=== PATIENT | male | born 1925 | race Caucasian/White ===

== ENCOUNTER 2017-02-09 20:44 | Inpatient (IN) | payer OTHER ==
[~2017-02-09] VITALS: Ht 193 cm; Wt 95.3 kg
[2017-02-09 20:57] VITALS: BP_SYST 150
[2017-02-09 21:59] LABS: MEAN CORPUSCULAR HEMOGLOBIN 29 pg (27-31); MEAN CORPUSCULAR HGB CONC 33 % (32-36); MEAN CORPUSCULAR VOLUME 90 fL (79.0-98.0); PLATELET COUNT (AUTO) 280 K/uL (130-430); RED BLOOD CELL COUNT(AUTO) 2.44 MIL/uL (4.2-6.2); RED CELL DISTRIBUTION WIDTH 18.9 % (9.0-15.0); WHITE BLOOD COUNT (AUTO) 22.7 K/uL (4.8-10.8)
[2017-02-09 22:10] LABS: HEMOGLOBIN 7.2 g/dL (14.0-18.0)
[2017-02-09 22:17] LABS: INR 1.1 (0.80-1.20); PROTHROMBIN TIME 11.5 SECS (9.5-12.5)
[2017-02-09 22:19] LABS: ANION GAP 6 (5-15); CALCIUM 7.3 mg/dL (8.4-11.0); CHLORIDE 113 mmol/L (98-107); CREATININE 5.79 mg/dL (0.55-1.30); GLUCOSE 126 mg/dL (70-99); SODIUM SERUM 145 mmol/L (136-145)
[2017-02-09 22:23] LABS: POTASSIUM 6.3 mmol/L (3.5-5.1); UREA NITROGEN, BLOOD 118 mg/dL (8-21)
[2017-02-09 22:27] LABS: ATYPICAL LYMPHOCYTES % 0 % (0-0); BAND % (MANUAL) 0 % (0-6); LYMPHOCYTES % (MANUAL) 1 % (20-46); MONOCYTES % (MANUAL) 5 % (0-11)
[2017-02-09 22:28] LABS: BASOPHILS % (MANUAL) 0 % (0-2); EOSINOPHILS % (MANUAL) 0 % (0-7)
[2017-02-09 22:29] LABS: ALANINE AMINOTRANSFERASE 24 U/L (12-78); ASPARTATE AMINOTRANSFERASE 22 U/L (10-37); TOTAL BILIRUBIN 0.3 mg/dL (0.0-1.0)
[2017-02-09 22:30] LABS: ALBUMIN 1.7 g/dL (3.4-4.8)
[2017-02-09] MEDS ORDERED: ALBUTEROL SULFATE 0.083% 2.5 MG/3 ML VIAL.NEB INH ONE (22:30)
[2017-02-09] MEDS ORDERED: NACL 0.9% 1,000 ML IV ONE (22:30)
[2017-02-09] MEDS ORDERED: CALCIUM CHLORIDE 1 GM in NS 100 ML IV ONE (22:30)
[2017-02-09] MEDS ORDERED: SODIUM POLYSTYRENE SULFONATE 15 GM/60 ML UDBTL PO ONE (22:30)
[2017-02-09] MEDS ORDERED: INSULIN REGULAR, HUMAN 10 UNITS/0.1 ML INJ IVP ONE (22:30)
[2017-02-09] MEDS ORDERED: DEXTROSE 50% JECT 50 ML DISP.SYRIN IVP ONE (22:30)
[2017-02-09 23:01] LABS: BILIRUBIN,URINE NEGATIVE (NEGATIVE); BLOOD, URINE 1+ (NEGATIVE); CLARITY/URINE CLEAR (CLEAR); COLOR,URINE YELLOW (YELLOW); GLUCOSE,URINE NEGATIVE (NEGATIVE); KETONES,URINE NEGATIVE (NEGATIVE); LEUKOCYTE ESTERASE ,URINE 2+ (NEGATIVE); NITRITE, URINE NEGATIVE (NEGATIVE); PH,URINE 5.5 (5.0-8.0); PROTEIN URINE NEGATIVE (NEGATIVE); UROBILINOGEN,URINE 0.2 (0.2-1.0)
[2017-02-09 23:11] LABS: BACTERIA,URINE MODERATE /HPF (None Seen); WBC,URINE 20-50 /HPF (0-3); YEAST,URINE Moderate /HPF (None Seen)
[2017-02-09] MEDS ORDERED: INSULIN REGULAR, HUMAN 10 UNITS/0.1 ML INJ ONE (23:28)
[2017-02-10] MEDS ORDERED: LOSA100T11 GT (00:04)
[2017-02-10] MEDS ORDERED: HYDR-4100 GT (00:04)
[2017-02-10] MEDS ORDERED: OMEP20CA10 GT (00:04)
[2017-02-10] MEDS ORDERED: VITD2000 GT (00:04)
[2017-02-10] MEDS ORDERED: ACET-2165 GT (00:04)
[2017-02-10] MEDS ORDERED: FERR-57 GT (00:04)
[2017-02-10] MEDS ORDERED: FLO110 INH (00:04)
[2017-02-10] MEDS ORDERED: DOXA4TAB2 GT (00:04)
[2017-02-10] MEDS ORDERED: ASPI-1063 GT (00:04)
[2017-02-10] MEDS ORDERED: LIP20 GT (00:04)
[2017-02-10] MEDS ORDERED: METO25TA6 GT (00:04)
[2017-02-10] MEDS ORDERED: BUDE6.9H INH (00:04)
[2017-02-10] MEDS ORDERED: CALCIUM CHLORIDE 1 GM/10 ML DISP.SYRIN (14 mEq Ca++/SYR) ONE (00:44)
[2017-02-10] MEDS ORDERED: 0.45% NACL 1,000 ML IV SCH (01:00)
[2017-02-10 01:28] VITALS: BP_SYST 137
[2017-02-10] MEDS ORDERED: FLU VACC QS 2017-18(36MOS+)/PF 0.5 ML/SYR SYRINGE I.M. PRN (01:45)
[2017-02-10] MEDS ORDERED: VANCOMYCIN HCL 1 GM/NS PREMIX 250 ML IV ONE (02:00)
[2017-02-10] MEDS ORDERED: VANCOMYCIN HCL 1000 MG/VIAL IV ONE (02:39)
[2017-02-10 07:28] LABS: BASOPHILS % (AUTO) 0.1 % (0.0-2.0); EOSINOPHILS % (AUTO) 0.2 % (0.0-4.0); LYMPHOCYTES # (AUTO) 0.2 K/uL (1.0-5.5); MEAN CORPUSCULAR HEMOGLOBIN 29 pg (27-31); MEAN CORPUSCULAR HGB CONC 33 % (32-36); MEAN CORPUSCULAR VOLUME 90 fL (79.0-98.0); MONOCYTES # (AUTO) 1.1 K/uL (0.0-1.0); MONOCYTES % (AUTO) 5.6 % (1.7-9.3); NEUTROPHILS # (AUTO) 18.4 K/uL (1.8-7.7); NEUTROPHILS % (AUTO) 93.1 % (40.0-70.0); PLATELET COUNT (AUTO) 248 K/uL (130-430); RED BLOOD CELL COUNT(AUTO) 2.17 MIL/uL (4.2-6.2); RED CELL DISTRIBUTION WIDTH 18.8 % (9.0-15.0)
[2017-02-10 08:04] VITALS: BP_SYST 134
[2017-02-10 08:10] LABS: ANION GAP 9 (5-15); CALCIUM 7.3 mg/dL (8.4-11.0); CHLORIDE 116 mmol/L (98-107); CREATININE 5.08 mg/dL (0.55-1.30); GLUCOSE 95 mg/dL (70-99); POTASSIUM 5.1 mmol/L (3.5-5.1); SODIUM SERUM 150 mmol/L (136-145)
[2017-02-10 08:17] LABS: UREA NITROGEN, BLOOD 111 mg/dL (8-21)
[2017-02-10 08:19] LABS: HEMATOCRIT 19.6 % (36-54); HEMOGLOBIN 6.4 g/dL (14.0-18.0)
[2017-02-10 08:20] LABS: WHITE BLOOD COUNT (AUTO) 19.7 K/uL (4.8-10.8)
[2017-02-10] MEDS ORDERED: LORATADINE 10 MG TABLET PO ONE (10:00)
[2017-02-10] MEDS ORDERED: FUROSEMIDE 40 MG/4 ML VIAL IVP ONE (11:15)
[2017-02-10] MEDS ORDERED: PANTOPRAZOLE SODIUM 40 MG/VIAL (PROTONIX) IVP ONE (11:15)
[2017-02-10] MEDS: D5W 1,000 ML IV SCH ×2 (11:17→22:30)
[2017-02-10] MEDS: FLUCONAZOLE 100 mg/ NS 50 ML IV SCH (11:18)
[2017-02-10 11:27] LABS: INR 1.2 (0.80-1.20); PROTHROMBIN TIME 12.4 SECS (9.5-12.5)
[2017-02-10 11:32] VITALS: BP_SYST 142
[2017-02-10] MEDS ORDERED: SODIUM POLYSTYRENE SULFONATE 15 GM/60 ML UDBTL GT ONE (12:00)
[2017-02-10] MEDS: CEFEPIME 1 GM in D5W 50 ML IV SCH (13:54)
[2017-02-10 14:18] LABS: TOTAL IRON BIND. CAPACITY 94 ug/dL (250-450)
[2017-02-10 16:11] VITALS: BP_SYST 145
[2017-02-10] MEDS: metroNIDAZOLE 500 mg/NS 100 ML IV SCH ×2 (16:11→22:14)
[2017-02-10 20:00] VITALS: BP_SYST 150
[2017-02-10] MEDS ORDERED: VANCOMYCIN HCL 500 MG in NS 100 ML IV SCH (23:00)
[2017-02-10 23:54] VITALS: BP_SYST 150
[2017-02-11 03:48] VITALS: BP_SYST 141
[2017-02-11] MEDS: metroNIDAZOLE 500 mg/NS 100 ML IV SCH ×3 (06:12→22:38)
[2017-02-11] MEDS: D5W 1,000 ML IV SCH ×2 (06:12→13:04)
[2017-02-11 07:31] LABS: EOSINOPHILS # (AUTO) 0.4 K/uL (0.0-0.4); EOSINOPHILS % (AUTO) 2.4 % (0.0-4.0); HEMATOCRIT 24.9 % (36-54); HEMOGLOBIN 8.2 g/dL (14.0-18.0); LYMPHOCYTES # (AUTO) 0.3 K/uL (1.0-5.5); LYMPHOCYTES % (AUTO) 1.6 % (20.5-51.5); MEAN CORPUSCULAR HEMOGLOBIN 29 pg (27-31); MEAN CORPUSCULAR HGB CONC 33 % (32-36); MEAN CORPUSCULAR VOLUME 88 fL (79.0-98.0); MONOCYTES # (AUTO) 1.1 K/uL (0.0-1.0); MONOCYTES % (AUTO) 6.5 % (1.7-9.3); NEUTROPHILS # (AUTO) 15.4 K/uL (1.8-7.7); NEUTROPHILS % (AUTO) 89.5 % (40.0-70.0); PLATELET COUNT (AUTO) 253 K/uL (130-430); RED BLOOD CELL COUNT(AUTO) 2.83 MIL/uL (4.2-6.2); RED CELL DISTRIBUTION WIDTH 18.5 % (9.0-15.0); WHITE BLOOD COUNT (AUTO) 17.2 K/uL (4.8-10.8)
[2017-02-11 07:42] LABS: ANION GAP 9 (5-15); CALCIUM 7.4 mg/dL (8.4-11.0); CHLORIDE 114 mmol/L (98-107); CREATININE 3.77 mg/dL (0.55-1.30); GLUCOSE 94 mg/dL (70-99); POTASSIUM 3.2 mmol/L (3.5-5.1); SODIUM SERUM 150 mmol/L (136-145)
[2017-02-11 07:55] LABS: UREA NITROGEN, BLOOD 108 mg/dL (8-21)
[2017-02-11 08:06] LABS: TOTAL IRON BIND. CAPACITY 94 ug/dL (250-450)
[2017-02-11] MEDS: PANTOPRAZOLE SODIUM 40 MG/VIAL (PROTONIX) IVP SCH (09:04)
[2017-02-11] MEDS: FLUCONAZOLE 100 mg/ NS 50 ML IV SCH (09:05)
[2017-02-11 09:10] VITALS: BP_SYST 170
[2017-02-11] MEDS ORDERED: KCL 20 mEq in 100 mL (PREMIX) 100 ML IV ONE (09:30)
[2017-02-11] MEDS: METOPROLOL TARTRATE 5 MG/5 ML VIAL IVP PRN (10:12)
[2017-02-11 11:32] VITALS: BP_SYST 160
[2017-02-11] MEDS: ALBUMIN HUMAN 25% 50 ML IV SCH ×3 (12:02→18:27)
[2017-02-11 12:11] LABS: FOLATE (FOLIC ACID) 12.8 ng/mL (>3.0)
[2017-02-11] MEDS: CEFEPIME 1 GM in D5W 50 ML IV SCH (13:14)
[2017-02-11 15:25] VITALS: BP_SYST 159
[2017-02-11] MEDS ORDERED: BUDESONIDE/FORMOTEROL 80-4.5 mCg, 6.9 GM INHALER INH SCH (21:00)
[2017-02-11] MEDS: ATORVASTATIN 20 MG TABLET GT SCH (22:38)
[2017-02-11] MEDS: METOPROLOL TARTRATE 25 MG TABLET GT SCH (22:41)
[2017-02-11 23:45] VITALS: BP_SYST 179
[2017-02-12] MEDS: METOPROLOL TARTRATE 5 MG/5 ML VIAL IVP PRN ×2 (00:36→05:10)
[2017-02-12 00:52] LABS: RETICULOCYTE COUNT 2.2 % (0.5-1.5)
[2017-02-12 03:59] VITALS: BP_SYST 182
[2017-02-12] MEDS: metroNIDAZOLE 500 mg/NS 100 ML IV SCH ×3 (05:10→21:23)
[2017-02-12 07:10] LABS: ALANINE AMINOTRANSFERASE 29 U/L (12-78); ALBUMIN 1.9 g/dL (3.4-4.8); ANION GAP 5 (5-15); ASPARTATE AMINOTRANSFERASE 26 U/L (10-37); CALCIUM 7.1 mg/dL (8.4-11.0); CHLORIDE 118 mmol/L (98-107); CREATININE 2.69 mg/dL (0.55-1.30); GLUCOSE 127 mg/dL (70-99); PHOSPHORUS 3.9 mg/dL (2.7-4.5); POTASSIUM 3.7 mmol/L (3.5-5.1); SODIUM SERUM 152 mmol/L (136-145); TOTAL BILIRUBIN 0.4 mg/dL (0.0-1.0); UREA NITROGEN, BLOOD 86 mg/dL (8-21)
[2017-02-12 07:13] LABS: BASOPHILS % (AUTO) 0.1 % (0.0-2.0); EOSINOPHILS # (AUTO) 0.5 K/uL (0.0-0.4); EOSINOPHILS % (AUTO) 3.9 % (0.0-4.0); HEMATOCRIT 23.1 % (36-54); HEMOGLOBIN 7.5 g/dL (14.0-18.0); LYMPHOCYTES # (AUTO) 0.3 K/uL (1.0-5.5); LYMPHOCYTES % (AUTO) 2.2 % (20.5-51.5); MEAN CORPUSCULAR HEMOGLOBIN 29 pg (27-31); MEAN CORPUSCULAR HGB CONC 33 % (32-36); MEAN CORPUSCULAR VOLUME 89 fL (79.0-98.0); MONOCYTES % (AUTO) 7.3 % (1.7-9.3); NEUTROPHILS # (AUTO) 11.5 K/uL (1.8-7.7); PLATELET COUNT (AUTO) 287 K/uL (130-430); RED CELL DISTRIBUTION WIDTH 18.4 % (9.0-15.0); WHITE BLOOD COUNT (AUTO) 13.3 K/uL (4.8-10.8)
[2017-02-12 07:17] LABS: INR 1.3 (0.80-1.20); PROTHROMBIN TIME 12.9 SECS (9.5-12.5)
[2017-02-12 08:00] VITALS: BP_SYST 206
[2017-02-12] MEDS: DOXAZOSIN MESYLATE 2 MG TABLET GT SCH (08:38)
[2017-02-12] MEDS: PANTOPRAZOLE SODIUM 40 MG/VIAL (PROTONIX) IVP SCH (08:38)
[2017-02-12] MEDS: METOPROLOL TARTRATE 25 MG TABLET GT SCH ×2 (08:39→21:25)
[2017-02-12] MEDS: LOSARTAN POTASSIUM 50 MG TABLET (COZAAR) GT SCH (08:39)
[2017-02-12] MEDS: FLUTICASONE/VILANTEROL 1 EACH BLST.W.DEV INH SCH (08:51)
[2017-02-12] MEDS: D5W 1,000 ML IV SCH (08:52)
[2017-02-12 10:15] LABS: NEUTROPHILS % (AUTO) 86.5 % (40.0-70.0)
[2017-02-12] MEDS: FLUCONAZOLE 100 mg/ NS 50 ML IV SCH (10:44)
[2017-02-12 11:14] LABS: FOLATE (FOLIC ACID) 11.2 ng/mL (>3.0)
[2017-02-12 12:20] VITALS: BP_SYST 161
[2017-02-12] MEDS: CEFEPIME 1 GM in D5W 50 ML IV SCH (12:21)
[2017-02-12] MEDS: traMADol HCL HCL 50 MG TABLET (ULTRAM) PO SCH ×2 (12:21→17:41)
[2017-02-12] MEDS: hydrALAZINE HCL 25 MG TABLET PO SCH (13:51)
[2017-02-12] MEDS: 0.45% NACL 1,000 ML IV SCH (14:02)
[2017-02-12] MEDS: cloNIDine HCL 0.2 MG TABLET PO PRN (15:52)
[2017-02-12 16:33] VITALS: BP_SYST 141
[2017-02-12 20:10] VITALS: BP_SYST 145
[2017-02-12] MEDS: ATORVASTATIN 20 MG TABLET GT SCH (21:22)
[2017-02-13 00:53] VITALS: BP_SYST 156
[2017-02-13] MEDS: traMADol HCL HCL 50 MG TABLET (ULTRAM) PO SCH ×3 (01:10→12:18)
[2017-02-13 05:59] VITALS: BP_SYST 140
[2017-02-13] MEDS: 0.45% NACL 1,000 ML IV SCH ×2 (06:24→12:21)
[2017-02-13] MEDS: metroNIDAZOLE 500 mg/NS 100 ML IV SCH ×3 (06:27→22:00)
[2017-02-13 08:00] VITALS: BP_SYST 174
[2017-02-13 09:06] LABS: BASOPHILS % (AUTO) 0.2 % (0.0-2.0); EOSINOPHILS # (AUTO) 0.5 K/uL (0.0-0.4); EOSINOPHILS % (AUTO) 4.2 % (0.0-4.0); HEMOGLOBIN 7.1 g/dL (14.0-18.0); LYMPHOCYTES # (AUTO) 0.3 K/uL (1.0-5.5); LYMPHOCYTES % (AUTO) 2.8 % (20.5-51.5); MEAN CORPUSCULAR HEMOGLOBIN 30 pg (27-31); MEAN CORPUSCULAR HGB CONC 33 % (32-36); MEAN CORPUSCULAR VOLUME 89 fL (79.0-98.0); MONOCYTES # (AUTO) 0.9 K/uL (0.0-1.0); MONOCYTES % (AUTO) 7.9 % (1.7-9.3); NEUTROPHILS # (AUTO) 10.1 K/uL (1.8-7.7); NEUTROPHILS % (AUTO) 84.9 % (40.0-70.0); PLATELET COUNT (AUTO) 240 K/uL (130-430); RED CELL DISTRIBUTION WIDTH 18.1 % (9.0-15.0); WHITE BLOOD COUNT (AUTO) 11.8 K/uL (4.8-10.8)
[2017-02-13 09:13] LABS: HEMATOCRIT 21.5 % (36-54)
[2017-02-13 09:16] LABS: ANION GAP 2 (5-15); CHLORIDE 117 mmol/L (98-107); CREATININE 2.19 mg/dL (0.55-1.30); GLUCOSE 145 mg/dL (70-99); POTASSIUM 3.9 mmol/L (3.5-5.1); SODIUM SERUM 150 mmol/L (136-145); UREA NITROGEN, BLOOD 78 mg/dL (8-21)
[2017-02-13 09:27] LABS: CALCIUM 6.9 mg/dL (8.4-11.0)
[2017-02-13] MEDS: FLUCONAZOLE 100 mg/ NS 50 ML IV SCH (10:03)
[2017-02-13] MEDS: PANTOPRAZOLE SODIUM 40 MG/VIAL (PROTONIX) IVP SCH (10:03)
[2017-02-13] MEDS: DOXAZOSIN MESYLATE 2 MG TABLET GT SCH (10:04)
[2017-02-13] MEDS: METOPROLOL TARTRATE 25 MG TABLET GT SCH ×2 (10:05→21:00)
[2017-02-13] MEDS: LOSARTAN POTASSIUM 50 MG TABLET (COZAAR) GT SCH (10:05)
[2017-02-13] MEDS: FLUTICASONE/VILANTEROL 1 EACH BLST.W.DEV INH SCH (10:07)
[2017-02-13] MEDS ORDERED: CHOLECALCIFEROL (VITAMIN D3) 2,000 UNIT TABLET GT ONE (11:00)
[2017-02-13] MEDS ORDERED: FERROUS SULFATE 325 MG TABLET.DR GT ONE (11:00)
[2017-02-13] MEDS ORDERED: ASPIRIN 81 MG TABLET(ECOTRIN) GT ONE (11:00)
[2017-02-13] MEDS ORDERED: OMEPRAZOLE 20 MG CAPSULE.DR (PriLOSEC) GT ONE (11:00)
[2017-02-13] MEDS ORDERED: FUROSEMIDE 40 MG/4 ML VIAL IVP ONE (11:15)
[2017-02-13 11:29] VITALS: BP_SYST 168
[2017-02-13] MEDS: CEFEPIME 1 GM in D5W 50 ML IV SCH (12:12)
[2017-02-13] MEDS: hydrALAZINE HCL 25 MG TABLET PO SCH ×3 (14:00→22:00)
[2017-02-13 16:16] VITALS: BP_SYST 141
[2017-02-13] MEDS: ATORVASTATIN 20 MG TABLET GT SCH (21:08)
[2017-02-13] MEDS: CALCIUM 500 MG/TAB GT SCH (21:08)
[2017-02-13 23:10] VITALS: BP_SYST 138
[2017-02-14 00:10] VITALS: BP_SYST 133
[2017-02-14] MEDS: traMADol HCL HCL 50 MG TABLET (ULTRAM) PO SCH ×6 (01:30→23:14)
[2017-02-14 04:18] VITALS: BP_SYST 127
[2017-02-14] MEDS: metroNIDAZOLE 500 mg/NS 100 ML IV SCH ×3 (05:10→21:30)
[2017-02-14] MEDS: hydrALAZINE HCL 25 MG TABLET PO SCH ×4 (05:14→21:34)
[2017-02-14 06:45] LABS: BASOPHILS % (AUTO) 0.1 % (0.0-2.0); EOSINOPHILS # (AUTO) 0.3 K/uL (0.0-0.4); EOSINOPHILS % (AUTO) 3.3 % (0.0-4.0); LYMPHOCYTES # (AUTO) 0.3 K/uL (1.0-5.5); LYMPHOCYTES % (AUTO) 2.8 % (20.5-51.5); MEAN CORPUSCULAR HEMOGLOBIN 28 pg (27-31); MEAN CORPUSCULAR HGB CONC 31 % (32-36); MEAN CORPUSCULAR VOLUME 89 fL (79.0-98.0); MONOCYTES # (AUTO) 0.8 K/uL (0.0-1.0); MONOCYTES % (AUTO) 7.6 % (1.7-9.3); NEUTROPHILS # (AUTO) 9.1 K/uL (1.8-7.7); NEUTROPHILS % (AUTO) 86.2 % (40.0-70.0); PLATELET COUNT (AUTO) 233 K/uL (130-430); RED CELL DISTRIBUTION WIDTH 18.1 % (9.0-15.0); WHITE BLOOD COUNT (AUTO) 10.5 K/uL (4.8-10.8)
[2017-02-14 07:25] LABS: HEMATOCRIT 21.5 % (36-54); HEMOGLOBIN 6.7 g/dL (14.0-18.0)
[2017-02-14 07:37] LABS: CREATININE 2.04 mg/dL (0.55-1.30); GLUCOSE 130 mg/dL (70-99); SODIUM SERUM 149 mmol/L (136-145); UREA NITROGEN, BLOOD 72 mg/dL (8-21)
[2017-02-14 07:51] LABS: ANION GAP 1 (5-15); CHLORIDE 116 mmol/L (98-107)
[2017-02-14 07:57] LABS: CALCIUM 6.8 mg/dL (8.4-11.0)
[2017-02-14 08:00] VITALS: BP_SYST 154
[2017-02-14] MEDS ORDERED: OMEPRAZOLE 20 MG CAPSULE.DR (PriLOSEC) GT SCH (09:00)
[2017-02-14] MEDS: PANTOPRAZOLE SODIUM 40 MG/VIAL (PROTONIX) IVP SCH (09:47)
[2017-02-14] MEDS: FLUTICASONE/VILANTEROL 1 EACH BLST.W.DEV INH SCH (09:47)
[2017-02-14] MEDS: ASPIRIN 81 MG TABLET(ECOTRIN) GT SCH (09:47)
[2017-02-14] MEDS: METOPROLOL TARTRATE 25 MG TABLET GT SCH ×2 (09:48→20:30)
[2017-02-14] MEDS: LOSARTAN POTASSIUM 50 MG TABLET (COZAAR) GT SCH (09:48)
[2017-02-14] MEDS: FERROUS SULFATE 325 MG TABLET.DR GT SCH (09:49)
[2017-02-14] MEDS: CALCIUM 500 MG/TAB GT SCH ×2 (09:49→20:24)
[2017-02-14] MEDS: CHOLECALCIFEROL (VITAMIN D3) 2,000 UNIT TABLET GT SCH (09:49)
[2017-02-14] MEDS: DOXAZOSIN MESYLATE 2 MG TABLET GT SCH (09:49)
[2017-02-14] MEDS: FLUCONAZOLE 100 mg/ NS 50 ML IV SCH (09:50)
[2017-02-14] MEDS: CEFEPIME 1 GM in D5W 50 ML IV SCH (12:17)
[2017-02-14 12:31] VITALS: BP_SYST 154
[2017-02-14 16:20] VITALS: BP_SYST 140
[2017-02-14 20:00] VITALS: BP_SYST 120
[2017-02-14] MEDS: ATORVASTATIN 20 MG TABLET GT SCH (20:24)
[2017-02-15 00:33] VITALS: BP_SYST 142
[2017-02-15 04:33] VITALS: BP_SYST 137
[2017-02-15] MEDS: metroNIDAZOLE 500 mg/NS 100 ML IV SCH ×3 (05:10→21:44)
[2017-02-15] MEDS: hydrALAZINE HCL 25 MG TABLET PO SCH ×3 (05:11→21:44)
[2017-02-15] MEDS: traMADol HCL HCL 50 MG TABLET (ULTRAM) PO SCH ×4 (05:11→23:36)
[2017-02-15 06:30] LABS: BASOPHILS % (AUTO) 0.1 % (0.0-2.0); EOSINOPHILS # (AUTO) 0.3 K/uL (0.0-0.4); EOSINOPHILS % (AUTO) 2.7 % (0.0-4.0); HEMATOCRIT 26.9 % (36-54); HEMOGLOBIN 8.8 g/dL (14.0-18.0); LYMPHOCYTES # (AUTO) 0.3 K/uL (1.0-5.5); LYMPHOCYTES % (AUTO) 2.7 % (20.5-51.5); MEAN CORPUSCULAR HEMOGLOBIN 29 pg (27-31); MEAN CORPUSCULAR HGB CONC 33 % (32-36); MEAN CORPUSCULAR VOLUME 90 fL (79.0-98.0); MONOCYTES # (AUTO) 0.8 K/uL (0.0-1.0); MONOCYTES % (AUTO) 6.4 % (1.7-9.3); NEUTROPHILS # (AUTO) 10.4 K/uL (1.8-7.7); NEUTROPHILS % (AUTO) 88.1 % (40.0-70.0); PLATELET COUNT (AUTO) 227 K/uL (130-430); RED BLOOD CELL COUNT(AUTO) 2.99 MIL/uL (4.2-6.2); RED CELL DISTRIBUTION WIDTH 16.8 % (9.0-15.0); WHITE BLOOD COUNT (AUTO) 11.8 K/uL (4.8-10.8)
[2017-02-15 07:01] LABS: CHLORIDE 118 mmol/L (98-107); CREATININE 1.81 mg/dL (0.55-1.30); GLUCOSE 137 mg/dL (70-99); POTASSIUM 4.3 mmol/L (3.5-5.1); SODIUM SERUM 149 mmol/L (136-145); UREA NITROGEN, BLOOD 68 mg/dL (8-21)
[2017-02-15 07:28] LABS: ANION GAP < 3 (5-15)
[2017-02-15 07:30] LABS: CALCIUM 6.9 mg/dL (8.4-11.0)
[2017-02-15 08:11] VITALS: BP_SYST 160
[2017-02-15] MEDS: LOSARTAN POTASSIUM 50 MG TABLET (COZAAR) GT SCH (09:08)
[2017-02-15] MEDS: CHOLECALCIFEROL (VITAMIN D3) 2,000 UNIT TABLET GT SCH (09:08)
[2017-02-15] MEDS: FERROUS SULFATE 325 MG TABLET.DR GT SCH (09:08)
[2017-02-15] MEDS: ASPIRIN 81 MG TABLET(ECOTRIN) GT SCH (09:08)
[2017-02-15] MEDS: DOXAZOSIN MESYLATE 2 MG TABLET GT SCH (09:08)
[2017-02-15] MEDS: CALCIUM 500 MG/TAB GT SCH ×2 (09:08→20:11)
[2017-02-15] MEDS: PANTOPRAZOLE SODIUM 40 MG/VIAL (PROTONIX) IVP SCH (09:09)
[2017-02-15] MEDS: METOPROLOL TARTRATE 25 MG TABLET GT SCH ×2 (09:09→20:12)
[2017-02-15] MEDS: FLUTICASONE/VILANTEROL 1 EACH BLST.W.DEV INH SCH (09:10)
[2017-02-15] MEDS: FLUCONAZOLE 100 mg/ NS 50 ML IV SCH (09:12)
[2017-02-15 12:26] VITALS: BP_SYST 125
[2017-02-15] MEDS: CEFEPIME 1 GM in D5W 50 ML IV SCH (13:06)
[2017-02-15 16:30] VITALS: BP_SYST 139
[2017-02-15 20:00] VITALS: BP_SYST 135
[2017-02-15] MEDS: ATORVASTATIN 20 MG TABLET GT SCH (20:11)
[2017-02-16 00:26] VITALS: BP_SYST 146
[2017-02-16 04:24] VITALS: BP_SYST 166
[2017-02-16] MEDS: traMADol HCL HCL 50 MG TABLET (ULTRAM) PO SCH ×3 (05:15→17:12)
[2017-02-16] MEDS: metroNIDAZOLE 500 mg/NS 100 ML IV SCH (05:15)
[2017-02-16] MEDS: hydrALAZINE HCL 25 MG TABLET PO SCH ×3 (05:19→21:52)
[2017-02-16 06:44] LABS: EOSINOPHILS # (AUTO) 0.2 K/uL (0.0-0.4); EOSINOPHILS % (AUTO) 1.6 % (0.0-4.0); HEMATOCRIT 26.6 % (36-54); HEMOGLOBIN 8.4 g/dL (14.0-18.0); LYMPHOCYTES # (AUTO) 0.4 K/uL (1.0-5.5); LYMPHOCYTES % (AUTO) 2.6 % (20.5-51.5); MEAN CORPUSCULAR HEMOGLOBIN 28 pg (27-31); MEAN CORPUSCULAR HGB CONC 31 % (32-36); MEAN CORPUSCULAR VOLUME 90 fL (79.0-98.0); MONOCYTES # (AUTO) 0.8 K/uL (0.0-1.0); MONOCYTES % (AUTO) 5.6 % (1.7-9.3); NEUTROPHILS # (AUTO) 12.1 K/uL (1.8-7.7); NEUTROPHILS % (AUTO) 90.2 % (40.0-70.0); PLATELET COUNT (AUTO) 224 K/uL (130-430); RED BLOOD CELL COUNT(AUTO) 2.98 MIL/uL (4.2-6.2); RED CELL DISTRIBUTION WIDTH 17.3 % (9.0-15.0); WHITE BLOOD COUNT (AUTO) 13.5 K/uL (4.8-10.8)
[2017-02-16 07:00] LABS: ANION GAP 2 (5-15); CHLORIDE 117 mmol/L (98-107); CREATININE 1.64 mg/dL (0.55-1.30); GLUCOSE 130 mg/dL (70-99); PHOSPHORUS 1.8 mg/dL (2.7-4.5); POTASSIUM 4.2 mmol/L (3.5-5.1); SODIUM SERUM 149 mmol/L (136-145); UREA NITROGEN, BLOOD 65 mg/dL (8-21)
[2017-02-16 07:21] LABS: CALCIUM 6.8 mg/dL (8.4-11.0)
[2017-02-16 08:19] VITALS: BP_SYST 147
[2017-02-16] MEDS: PANTOPRAZOLE SODIUM 40 MG/VIAL (PROTONIX) IVP SCH (08:21)
[2017-02-16] MEDS: ASPIRIN 81 MG TABLET(ECOTRIN) GT SCH (08:21)
[2017-02-16] MEDS: DOXAZOSIN MESYLATE 2 MG TABLET GT SCH (08:21)
[2017-02-16] MEDS: LOSARTAN POTASSIUM 50 MG TABLET (COZAAR) GT SCH (08:21)
[2017-02-16] MEDS: CALCIUM 500 MG/TAB GT SCH ×2 (08:22→20:19)
[2017-02-16] MEDS: METOPROLOL TARTRATE 25 MG TABLET GT SCH ×2 (08:22→20:19)
[2017-02-16] MEDS: FLUTICASONE/VILANTEROL 1 EACH BLST.W.DEV INH SCH (08:22)
[2017-02-16] MEDS: FERROUS SULFATE 325 MG TABLET.DR GT SCH (08:22)
[2017-02-16] MEDS: CHOLECALCIFEROL (VITAMIN D3) 2,000 UNIT TABLET GT SCH (08:24)
[2017-02-16] MEDS ORDERED: FLUCONAZOLE 100 mg/ NS 50 ML IV SCH (10:00)
[2017-02-16] MEDS: CEFEPIME 1 GM in D5W 50 ML IV SCH (12:03)
[2017-02-16 15:23] VITALS: BP_SYST 152
[2017-02-16 16:41] VITALS: BP_SYST 148
[2017-02-16] MEDS ORDERED: D5W 1,000 ML IV SCH (18:45)
[2017-02-16] MEDS ORDERED: NA PHOS 30 MM in NS 250 ML IV ONE (18:45)
[2017-02-16] MEDS ORDERED: K PHOS 30 MM in NS 250 ML IV SCH (19:15)
[2017-02-16 20:00] VITALS: BP_SYST 150
[2017-02-16] MEDS: ATORVASTATIN 20 MG TABLET GT SCH (20:19)
[2017-02-17] VITALS (8 sets, daily range): BP systolic 117–176
[2017-02-17] MEDS: traMADol HCL HCL 50 MG TABLET (ULTRAM) PO SCH ×4 (00:43→17:11)
[2017-02-17] MEDS: cloNIDine HCL 0.2 MG TABLET PO PRN (00:47)
[2017-02-17] MEDS: hydrALAZINE HCL 25 MG TABLET PO SCH ×3 (05:21→22:14)
[2017-02-17 07:05] LABS: EOSINOPHILS % (AUTO) 0.2 % (0.0-4.0); HEMATOCRIT 26.3 % (36-54); HEMOGLOBIN 8.6 g/dL (14.0-18.0); LYMPHOCYTES # (AUTO) 0.4 K/uL (1.0-5.5); LYMPHOCYTES % (AUTO) 2.6 % (20.5-51.5); MEAN CORPUSCULAR HEMOGLOBIN 29 pg (27-31); MEAN CORPUSCULAR HGB CONC 33 % (32-36); MEAN CORPUSCULAR VOLUME 90 fL (79.0-98.0); MONOCYTES # (AUTO) 0.7 K/uL (0.0-1.0); MONOCYTES % (AUTO) 4.5 % (1.7-9.3); NEUTROPHILS # (AUTO) 13.8 K/uL (1.8-7.7); NEUTROPHILS % (AUTO) 92.7 % (40.0-70.0); PLATELET COUNT (AUTO) 235 K/uL (130-430); RED BLOOD CELL COUNT(AUTO) 2.93 MIL/uL (4.2-6.2); RED CELL DISTRIBUTION WIDTH 17.2 % (9.0-15.0)
[2017-02-17 07:14] LABS: ANION GAP 1 (5-15); CHLORIDE 117 mmol/L (98-107); CREATININE 1.48 mg/dL (0.55-1.30); GLUCOSE 131 mg/dL (70-99); PHOSPHORUS 3.2 mg/dL (2.7-4.5); POTASSIUM 4.9 mmol/L (3.5-5.1); SODIUM SERUM 149 mmol/L (136-145); UREA NITROGEN, BLOOD 62 mg/dL (8-21)
[2017-02-17] MEDS: ASPIRIN 81 MG TABLET(ECOTRIN) GT SCH (08:07)
[2017-02-17] MEDS: FLUTICASONE/VILANTEROL 1 EACH BLST.W.DEV INH SCH (08:07)
[2017-02-17] MEDS: PANTOPRAZOLE SODIUM 40 MG/VIAL (PROTONIX) IVP SCH (08:07)
[2017-02-17] MEDS: DOXAZOSIN MESYLATE 2 MG TABLET GT SCH (08:07)
[2017-02-17] MEDS: FERROUS SULFATE 325 MG TABLET.DR GT SCH (08:07)
[2017-02-17] MEDS: LOSARTAN POTASSIUM 50 MG TABLET (COZAAR) GT SCH (08:08)
[2017-02-17] MEDS: CHOLECALCIFEROL (VITAMIN D3) 2,000 UNIT TABLET GT SCH (08:08)
[2017-02-17] MEDS: CALCIUM 500 MG/TAB GT SCH ×2 (08:08→22:13)
[2017-02-17] MEDS: METOPROLOL TARTRATE 25 MG TABLET GT SCH ×2 (08:08→22:14)
[2017-02-17 08:10] LABS: WHITE BLOOD COUNT (AUTO) 14.9 K/uL (4.8-10.8)
[2017-02-17] MEDS: CEFEPIME 1 GM in D5W 50 ML IV SCH (12:47)
[2017-02-17] MEDS: ATORVASTATIN 20 MG TABLET GT SCH (22:13)
[2017-02-18] MEDS: traMADol HCL HCL 50 MG TABLET (ULTRAM) PO SCH ×3 (00:28→13:19)
[2017-02-18 04:58] VITALS: BP_SYST 190
[2017-02-18] MEDS: cloNIDine HCL 0.2 MG TABLET PO PRN (05:38)
[2017-02-18] MEDS: hydrALAZINE HCL 25 MG TABLET PO SCH ×2 (05:38→13:14)
[2017-02-18 07:15] VITALS: BP_SYST 142
[2017-02-18] MEDS: LOSARTAN POTASSIUM 50 MG TABLET (COZAAR) GT SCH (08:31)
[2017-02-18] MEDS: CALCIUM 500 MG/TAB GT SCH (08:31)
[2017-02-18] MEDS: CHOLECALCIFEROL (VITAMIN D3) 2,000 UNIT TABLET GT SCH (08:32)
[2017-02-18] MEDS: METOPROLOL TARTRATE 25 MG TABLET GT SCH (08:32)
[2017-02-18] MEDS: DOXAZOSIN MESYLATE 2 MG TABLET GT SCH (08:33)
[2017-02-18] MEDS: FERROUS SULFATE 325 MG TABLET.DR GT SCH (08:33)
[2017-02-18] MEDS: ASPIRIN 81 MG TABLET(ECOTRIN) GT SCH (08:33)
[2017-02-18] MEDS: PANTOPRAZOLE SODIUM 40 MG/VIAL (PROTONIX) IVP SCH (08:46)
[2017-02-18] MEDS: FLUTICASONE/VILANTEROL 1 EACH BLST.W.DEV INH SCH (09:00)
[2017-02-18 10:31] VITALS: BP_SYST 142
[2017-02-18] MEDS ORDERED: IPRATROPIUM/ALBUTEROL SULFATE 3 ML AMPUL.NEB INH SCH (11:00)
[2017-02-18 12:17] VITALS: BP_SYST 142
[2017-02-18] MEDS: CEFEPIME 1 GM in D5W 50 ML IV SCH (13:15)
[2017-02-18 14:31] VITALS: BP_SYST 132
== END 2017-02-18 15:52 | disposition hospice, inpatient (51) | DRG 871 ==
LOC: SED 20:44 → STU 02-10 00:50
PROVIDERS: ADMIT General Practice; ATTEND General Practice
PROC: 30233N1 Transfusion of Nonautologous Red Blood Cells into Peripheral Vein, Percutaneous Approach (ICD-10-PCS; principal; 2017-02-10)
PROC: 02HV33Z Insertion of Infusion Device into Superior Vena Cava, Percutaneous Approach (ICD-10-PCS; 2017-02-11)
PROC: B548ZZA Ultrasonography of Superior Vena Cava, Guidance (ICD-10-PCS; 2017-02-11)
PROC: 30233N1 Transfusion of Nonautologous Red Blood Cells into Peripheral Vein, Percutaneous Approach (ICD-10-PCS; 2017-02-14)
DX: A41.9 Sepsis, unspecified organism (principal); J69.0 Pneumonitis due to inhalation of food and vomit; N17.0 Acute kidney failure with tubular necrosis; E43 Unspecified severe protein-calorie malnutrition; E11.22 Type 2 diabetes mellitus with diabetic chronic kidney disease; I42.9 Cardiomyopathy, unspecified; E83.39 Other disorders of phosphorus metabolism; K92.2 Gastrointestinal hemorrhage, unspecified; E87.0 Hyperosmolality and hypernatremia; B37.49 Other urogenital candidiasis; I13.0 Hypertensive heart and chronic kidney disease with heart failure and stage 1 through stage 4 chronic kidney disease, or unspecified chronic kidney disease; Z66 Do not resuscitate; E83.51 Hypocalcemia; E87.5 Hyperkalemia; I50.9 Heart failure, unspecified; D50.0 Iron deficiency anemia secondary to blood loss (chronic); F03.90 Unspecified dementia, unspecified severity, without behavioral disturbance, psychotic disturbance, mood disturbance, and anxiety; E78.5 Hyperlipidemia, unspecified; J44.9 Chronic obstructive pulmonary disease, unspecified; R06.89 Other abnormalities of breathing; K21.9 Gastro-esophageal reflux disease without esophagitis; N18.9 Chronic kidney disease, unspecified; R62.7 Adult failure to thrive; Z93.1 Gastrostomy status; Z88.6 Allergy status to analgesic agent; Z79.899 Other long term (current) drug therapy; Z86.718 Personal history of other venous thrombosis and embolism; Z68.25 Body mass index [BMI] 25.0-25.9, adult
CPT/HCPCS: 36415; 71010; 76700-TC; 80048; 80053; 81000-TC; 82272; 82306; 82607; 82728; 82746; 83540-TC; 83550-TC; 83605; 83735-TC; 83880; 83970; 84100-TC; 84302-TC; 85007; 85025; 85027; 85044-TC; 85610-TC; 85730-TC; 86886; 86900; 86901; 86920; 87040-TC; 87081; 87086; 93005; 94640; 94760; 96365; 96368; 96375; 99285; C1751; C9113; J0692; J1450; J1815; J1940; J1956; J3370; J3480; J3490; J7030; J7040; J7050; J7060; P9021; P9046; Q2037